=== PATIENT | male | born 1955 | race Caucasian/White ===

== ENCOUNTER 2016-12-11 05:49 | Emergency (ER) | payer OTHER ==
[2016-12-11 06:33] LABS: ABSOLUTE NEUTROPHIL COUNT 3.4 K/mm3 (1.8-7.7); BASO % 0.3 % (0.2-1.0); EOS # 0.1 (0.0-0.5); EOS % 2.2 % (0.9-2.9); HEMATOCRIT 40.9 % (32.0-52.0); HEMOGLOBIN 13.6 gm/l (14.0-18.0); IMM NEUT% 0.2 % (0-1); LYMPH # 2.2 (1.0-4.8); LYMPH % 33.8 % (15-45); MEAN CELL VOLUME 91.7 fl (80.0-94.0); MEAN CORPUSCULAR HEMOGLOBIN 30.5 pg (27.0-31.0); MEAN CORPUSCULAR HGB CONC 33.3 g/dl (33.0-37.0); MONO # 0.6 (0.0-0.8); MONO % 9.6 % (4-12); NEUT % 53.9 % (43-75); PLATELET COUNT 272 K/mm3 (130-400); RED CELL DISTRIBUTION WIDTH 12.3 % (11.5-14.5)
[2016-12-11 06:54] LABS: ALB/GLOB RATIO 1.3 (>1.0); ALBUMIN 4.1 gm/dL (3.5-5.7); CALCIUM 9.3 mg/dL (8.6-10.3)
[2016-12-11 06:58] LABS: TROPONIN I < 0.01 ng/ml (0.0-0.06)
[2016-12-11 07:02] LABS: CKMB ISOENZYME 2.6 ng/ml (0.6-6.3)
[2016-12-11] MEDS: IOPAMIDOL 370 (76%) 100 ML VIAL IV ONE (07:15)
--- NOTE | 2016-12-11 07:51 | CT ---
EXAMINATION: Contrast enhanced CT scan of the abdomen and pelvis. CLINICAL INDICATION: Upper abdominal pain. COMPARISON: None TECHNIQUE: Oral contrast: None Following uneventful administration of 100 mL of Isovue 370, intravenously axial images were acquired from just above the domes of the diaphragm to the iliac crest. A CT scan of the pelvis was also obtained from the iliac crest to the initial tuberosities. Stacked axial, sagittal, and coronal images were reviewed. Findings: Abdomen CT: (Contrast-enhanced): There is very mild bibasilar atelectasis. No mass or consolidation is identified. The liver is unremarkable. The gallbladder is within normal limits. There is no evidence of biliary obstruction. The spleen size and attenuation are within normal limits. The pancreas is normal in size and contours. No inflammatory stranding is identified. The pancreatic duct is unremarkable. The adrenals are unremarkable. The kidneys are without mass or hydronephrosis. No nephrolithiasis is identified. The abdominal aorta unremarkable. There is no retroperitoneal adenopathy identified. The visualized segments of small and large bowel are within normal limits. There is increased attenuation within the mesentery with prominent mesenteric lymph node measuring 2.0 x 1.1 cm. A numerous scattered shotty mesenteric lymph nodes are noted within the proximal root as well. No discrete mass or abscess is identified. There is no evidence of perforation. No adjacent bowel wall thickening is appreciated. The osseous structures exhibit no displaced fracture. No lytic or blastic lesions are identified. Pelvic CT: (Contrast -enhanced): The distal ureters and bladder are unremarkable. The prostate is normal in size. No adenopathy is identified. The distal abdominal aorta and iliac vessels are within normal limits. The descending colon exhibits mild mucosal thickening. This may be due to contraction or pseudothickening. However an inflammatory process should also be considered. Posterior the descending colon there is a fluid attenuating 1 cm focus with currently no adjacent mesenteric inflammatory stranding. This may reflect a fluid-filled diverticulum. The appendix is unremarkable. No osteolytic or blastic changes are identified. Lumbar spondylosis changes are noted. The overlying soft tissues are unremarkable. IMPRESSION: 1. Proximal panniculitis/mesenteric adenitis near the mesenteric root. 2. Findings which may reflect ascending colitis. Currently there is no evidence of focal diverticulitis. 3. Diverticulosis of the sigmoid colon. 4. Normal appendix. 5. 2.5 cm right renal cyst. 6. Spondylosis changes of the lumbar spine. Findings were discussed with Dr. Delacruz at 7:42 AM 12/11/2016
[2016-12-11 08:29] LABS: SPECIFIC GRAVITY 1.015 (1.001-1.030); URINE BILIRUBIN NEGATIVE (NEGATIVE); URINE BLOOD NEGATIVE (NEGATIVE); URINE GLUCOSE (UA) NEGATIVE (NEGATIVE); URINE LEUKOCYTE ESTERASE NEGATIVE (NEGATIVE); URINE NITRITE NEGATIVE (NEGATIVE); URINE PROTEIN NEGATIVE (NEGATIVE); URINE UROBILINOGEN NORMAL (0-1 mg/dl)
[2016-12-11 08:36] LABS: URINE APPEARANCE CLEAR; URINE COLOR YELLOW
== END 2016-12-11 08:55 | disposition home or self-care (01) ==
LOC: ED 05:49
DX: K57.90 Diverticulosis of intestine, part unspecified, without perforation or abscess without bleeding (principal); I88.0 Nonspecific mesenteric lymphadenitis; M79.3 Panniculitis, unspecified; R10.10 Upper abdominal pain, unspecified; N40.0 Benign prostatic hyperplasia without lower urinary tract symptoms
CPT/HCPCS: 83690; 85025; 82550; 82553; 80053; 81003; 84443; 84484; 74177; 99284 ×2; 93005; Q9967